=== PATIENT | male | born 1950 | race Caucasian/White ===

== ENCOUNTER → 2018-06-17 | Day surgery (SDC) | payer OTHER ==
[2015-05-18 15:20] VITALS: BP 116/75
[~2018-06-17] MED LIST: ALBUTEROL SULFAT3 M3 IH; ASACOL400 MG PO; ATIVAN0.5 MG PO; ATIVAN1 MG PO; CLARITIN10 MG PO; KLONOPIN 0.5MG0.5 MG PO; LEVOTHYROXINE0.1 MG PO; RT ALBUTEROL I6.8 GM IH; SPIRIVA18 MCG IH
== END ==
LOC: MSO 12:03
DX: Z12.11 Encounter for screening for malignant neoplasm of colon (principal); K63.5 Polyp of colon; K57.30 Diverticulosis of large intestine without perforation or abscess without bleeding; Z86.010 Personal history of colon polyps; J44.9 Chronic obstructive pulmonary disease, unspecified; Z79.899 Other long term (current) drug therapy; I10 Essential (primary) hypertension; Z87.891 Personal history of nicotine dependence; K21.9 Gastro-esophageal reflux disease without esophagitis
CPT/HCPCS: 00811; J2704; J7120

== ENCOUNTER → 2019-03-17 | Day surgery (SDC) | payer OTHER ==
[2015-05-18 15:20] VITALS: BP 116/75
== END ==
LOC: MSO 03-16 09:45
DX: Z12.11 Encounter for screening for malignant neoplasm of colon (principal); D12.3 Benign neoplasm of transverse colon; D12.8 Benign neoplasm of rectum; K57.30 Diverticulosis of large intestine without perforation or abscess without bleeding; Z86.010 Personal history of colon polyps; E03.9 Hypothyroidism, unspecified; J44.9 Chronic obstructive pulmonary disease, unspecified; Z95.1 Presence of aortocoronary bypass graft; Z79.82 Long term (current) use of aspirin; Z79.52 Long term (current) use of systemic steroids; I10 Essential (primary) hypertension; K21.9 Gastro-esophageal reflux disease without esophagitis; F17.210 Nicotine dependence, cigarettes, uncomplicated; J30.2 Other seasonal allergic rhinitis
CPT/HCPCS: 00811; J2704; J7120

== ENCOUNTER 2024-03-26 16:50 | Emergency (ER) | payer OTHER ==
[~2024-03-26 16:50] MED LIST changes: +Morphine 4 MG/ML VIAL IV ONE
[2024-05-01 07:43] LABS: ALBUMIN 3.9 g/dL (3.4-4.8); CALCIUM 9.3 mg/dL (8.3-10.5); TOTAL BILIRUBIN 0.3 mg/dL (0.2-1.2); TOTAL PROTEIN 6.6 g/dL (6.2-8.1)
[2024-05-01 07:49] LABS: BASO # 0.03 K/mm3 (0.02-0.10); EOS % 3.5 % (0.0-4.0); HEMATOCRIT 38.1 % (42.0-52.0); HEMOGLOBIN 12.2 g/dL (13.5-18.0); LYMPH# 1.05 K/mm3 (1.50-4.00); MEAN CELL VOLUME 89 fl (78-100); MEAN CORPUSCULAR HEMOGLOBIN 29 pg (27-31); MEAN CORPUSCULAR HGB CONC 32 g/dL (33-37); MEAN PLATELET VOLUME 7.8 fl (7.4-10.4); MONO # 0.85 K/mm3 (0.20-0.80); PLATELET COUNT 405 K/mm3 (130-400); RED BLOOD COUNT 4.28 M/mm3 (4.20-5.60); RED CELL DISTRIBUTION WIDTH 14.2 % (11.5-14.5); WHITE BLOOD COUNT 11.5 K/mm3 (4.8-10.8)
[2024-05-01 07:54] LABS: PROTHROMBIN TIME 10.4 SECONDS (9.0-12.0)
== END 2024-03-26 20:15 | disposition short-term general hospital (02) ==
LOC: ED 16:50
PROVIDERS: Family Medicine
DX: S12.000A Unspecified displaced fracture of first cervical vertebra, initial encounter for closed fracture (principal); S12.110A Anterior displaced Type II dens fracture, initial encounter for closed fracture; W10.8XXA Fall (on) (from) other stairs and steps, initial encounter
CPT/HCPCS: 90715; J2270